=== PATIENT | male | born 1965 | race African-American/Black ===

== ENCOUNTER 2016-12-07 19:20 | Observation (INO) | payer OTHER, MEDICARE ==
--- NOTE | ~2016-12-07 | HP ---
History And Physical [address] [place]. [address] NAME: SALAZAR JIMÉNEZ : 65 STATUS : ADM IN [facility]#: [id number] AGE: 51 ADM/REG DATE : 12/07/16 MR#: [id number] REPORT SERV DATE: 12/08/16 DICTATED BY: BERNARD EDWARDS DATE: 12/08/16 REPORT STATUS : Draft TRANSCRIBED BY: LIZBETH DATE: 12/08/16 DATE OF ADMISSION: 12/07/2016 CHIEF COMPLAINT: A 51-year-old male presenting with extreme right flank pain. HISTORY OF PRESENTING ILLNESS: The patient's history was obtained through careful interview with the patient, coupled with review of [facility] and [facility] medical records. The patient, about a week ago, began to notice intermittent discoloration and even blood in his urine. But then he states today, "the pain just nailed me." He describes right flank pain a dull throbbing quality that at one point was up to 20/10 severity pain. He has had nausea, but no vomiting. He has had difficulty urinating because attempting to urinate exacerbates the pain. No fevers or chills. It should be noted that the patient recently has been on some kind of "experimental" treatment at [facility] for his multiple sclerosis, which includes high-dose biotin infusions. He believes since he started this therapy, he has had increasing strength in his legs and he has been quite encouraged by his progress in terms of his multiple sclerosis. He has noticed increased swelling in his legs, however, and sometimes they are cold to the touch, but are not particularly painful. REVIEW OF SYSTEMS: Otherwise, a 14-point review of systems was obtained and was negative. PAST MEDICAL HISTORY: 1. Multiple sclerosis, followed by Dr. Uriostegui, but also Dr. Reid Nation at [facility]. 2. Diabetes under good control. 3. Hypertension. 4. Colon polyps, seen by Dr. Weston. 5. No cardiac disease. No lung disease. PAST SURGICAL HISTORY: Right elbow nerve transplantation. ALLERGIES: CHOCOLATE AND TOMATOES. SOCIAL HISTORY: Quit smoking in 2008. Drinks occasional alcohol. He is . His in good health. The patient himself is disabled in a wheelchair. He has no biological children. History And Physical [address] [place]. [address] NAME: SALAZAR JIÉMNEZ : 65 STATUS : ADM IN [facility]#: [id number] AGE: 51 ADM/REG DATE : 12/07/16 MR#: [id number] REPORT SERV DATE: 12/08/16 DICTATED BY: BERNARD EDWARDS DATE: 12/08/16 REPORT STATUS : Draft TRANSCRIBED BY: LIZBETH DATE: 12/08/16 FAMILY HISTORY: Adopted, uncertain of any family history. CURRENT MEDICATIONS: Unknown at this time, but do include the biotin infusions from [facility]. We have asked pharmacy to obtain a medication list for us. PHYSICAL EXAMINATION: VITAL SIGNS: Temperature 98.6, pulse 99, blood pressure 137/92, respiratory rate 16, and O2 saturation 97% on room air. GENERAL: A pleasant, cooperative male, in evidence of distress secondary to his right flank pain. HEENT: Pupils equal, round, and reactive to light. No conjunctival pallor. No scleral icterus. Nares are patent. Oropharynx is clear of obstruction. Dry mucous membranes. NECK: Trachea midline. No thyromegaly. LYMPH: No cervical lymphadenopathy. No supraclavicular lymphadenopathy. No inguinal lymphadenopathy. RESPIRATORY: Clear to auscultation at bases. No wheezes, rales, or rhonchi. Normal respiratory effort. CARDIOVASCULAR: Regular rate and rhythm. No murmurs, rubs, or gallops. The patient does have chronic-appearing lower extremity edema extending from his ankles all the way up to his thighs symmetrically. ABDOMEN: Significant right flank tenderness and right anterior abdominal tenderness into his suprapubic region. No guarding. No rebound. Nondistended. No hepatosplenomegaly. DERMATOLOGICAL: Warm and dry extremities. No pallor. No cyanosis. PSYCHIATRIC: Normal affect. Good mood. Alert and oriented x3. LABORATORY DATA: Lactic acid 0.8, lipase 264, ALT, 89, white blood cell count 5.0, hemoglobin 13, hematocrit 40, platelets 264. Sodium 143, potassium 3.7, chloride 107, bicarb 33, BUN 12, creatinine 1.28, glucose 96. Urinalysis shows 89 red blood cells. STUDIES: 1. CT scan of the abdomen and pelvis shows moderate right hydroureter and hydronephrosis with large kidney stone. 2. Chest x-ray by my own evaluation shows no acute cardiopulmonary process. ASSESSMENT AND PLAN: 1. Obstructive nephrolithiasis with hydronephrosis. Consult Urology, Dr. Fletcher, for removal. The patient recently started on high-dose biotin at [facility]. It is possible that there is a correlation in the literature between biotin and calcium oxalate kidney stones? 2. Leg swelling with lymphedema. Check venous Doppler ultrasound of lower extremities to rule out deep vein thrombosis. 3. Multiple sclerosis. Debilitated. Monitor closely. 4. Diabetes. Check hemoglobin A1c. Place on sliding scale insulin. [facility] History And Physical [address] [place]. [address] NAME: SALAZAR JIMÉNEZ : 65 STATUS : ADM IN [facility]#: [id number] AGE: 51 ADM/REG DATE : 12/07/16 MR#: [id number] REPORT SERV DATE: 12/08/16 DICTATED BY: BERNARD EDWARDS DATE: 12/08/16 REPORT STATUS : Draft TRANSCRIBED BY: LIZBETH DATE: 12/08/16 Bernard Edwards M.D. / [id number] CC: Pili Reveles D.O. F.A.C.P.
--- NOTE | ~2016-12-07 | OP ---
Record Of Operation [facility] [address] [place]. [address] NAME: SALAZAR JIMÉNEZ : 65 STATUS : ADM IN PAT#: [id number] AGE: 51 ADM/REG DATE : 12/07/16 MR#: [id number] REPORT SERV DATE: 12/08/16 DICTATED BY: GARY ROME DATE: 12/08/16 REPORT STATUS : Draft TRANSCRIBED BY: MODAustin DATE: 12/08/16 DATE OF PROCEDURE: 12/07/2016 PREOPERATIVE DIAGNOSIS: Distal right ureteral calculus. POSTOPERATIVE DIAGNOSIS: Distal right ureteral calculus. OTHER DIAGNOSIS: Right ureterocele. PROCEDURES: 1. Cystoscopy. 2. Transurethral incision of right ureterocele. 3. Right ureteroscopic stone extraction. 4. Right retrograde pyelogram. SURGEON: Gary Rome M.D. ANESTHESIA: General endotracheal. ESTIMATED BLOOD LOSS: Less than 5 mL. FLUID REPLACEMENT: Unknown. DRAINS: None. INDICATION: 51-year-old male with right hydronephrosis and a CT scan demonstrating what appears to be a 10 mm stone in the distal right ureter. TECHNIQUE: The patient was identified, brought to the operating room, administered general anesthetic agent by the Anesthesia Service, intubated. He was positioned in dorsal lithotomy position. Penis, groin, scrotum, and perineum were prepped and draped in the usual sterile fashion. A 22-Ukrainian cystoscopic sheath with 30-degree lens was used for cystourethroscopy. The anterior bulbus urethra was normal. Prostatic urethra normal. The bladder was entered and surveyed. Left ureteral orifice was normal. The right ureteral orifice has a large ureterocele with a small ureteral ostia and stone seen inside the ureteral ostia. Using a cold scissor, I incised the ureterocele in the lateral location for approximately 1.5 cm. I then delivered the stone out with a grasping forceps. It would not fit through the 22-Ukrainian cystoscopic sheath, so I eventually exchanged the 22-Ukrainian cystoscopic sheath for a 25 sheath. The stone came out through the 25 sheath. I did a right retrograde pyelogram. It showed a dilated ureter. I removed the 25-Ukrainian sheath. I used a 17-Ukrainian cystoscope and inserted into the ureterocele and looked up the right ureter. There was somewhat of a narrowing at the right ureterovesical junction but was widely patent. I did not attempt to dilate that. I removed the 17-Ukrainian scope. I reinserted a 22-Ukrainian scope. I used the Bugbee electrode and cauterized the edges of the cut ureterocele. I then drained Record Of Operation [facility] [address] [place]. [address] NAME: SALAZAR JIMÉNEZ : 65 STATUS : ADM IN PAT#: [id number] AGE: 51 ADM/REG DATE : 12/07/16 MR#: [id number] REPORT SERV DATE: 12/08/16 DICTATED BY: GARY ROME DATE: 12/08/16 REPORT STATUS : Draft TRANSCRIBED BY: LIZBETH DATE: 12/08/16 the bladder and removed the cystoscope and terminated the procedure. PF/LIZBETH Gary Rome M.D. / [id number] CC: Pili Reveles D.O. F.A.C.P.
--- NOTE | ~2016-12-07 | DS ---
Discharge Summary [facility] [address] [place]. [address] NAME: SALAZAR JIMÉNEZ : 65 STATUS : DIS Stephanie PAT#: [id number] AGE: 51 ADM/REG DATE : 12/07/16 MR#: [id number] REPORT SERV DATE: 12/08/16 DICTATED BY: ISAAC JARAMILLO DATE: 12/08/16 REPORT STATUS : Draft TRANSCRIBED BY: MODAustin DATE: 12/08/16 ADMISSION DATE: 12/07/2016 DISCHARGE DATE: 12/08/2016 DISCHARGE DIAGNOSES: 1. Obstructive nephrolithiasis, now resolved. 2. Bilateral lower extremity edema, most likely lymphedema. 3. Multiple sclerosis. 4. Type 2 diabetes mellitus. 5. Hypertension. CONSULTANTS DURING THIS HOSPITALIZATION: Gary Fletcher M.D. of Urology. INVASIVE PROCEDURES DONE DURING THIS HOSPITALIZATION: Cystoscopy with stone extraction done by Dr. Fletcher on the right ureteral calculus. BRIEF HISTORY OF PRESENT ILLNESS: The patient is a 51-year-old male, who suffers from multiple sclerosis, recently received a large dose of IV biotin at [facility] for his MS, came in with right flank pain and found to have an obstructive stone, so he was admitted. For detailed history and physical exam, please see note dictated by Dr. Kevin Elam on 12/07/2016. HOSPITAL COURSE: After being admitted to the hospital, this patient was given copious amounts of IV fluids. Reasonable pain control was offered and Dr. Fletcher saw the patient in consultation. After looking at his scans, Dr. Fletcher performed a cystoscopy and stone extraction as noted previously. Postoperatively, this patient was doing well. He was tolerating a diet. There was some concern about whether he had lower extremity DVTs. Bilateral venous Dopplers were done and these were and reported negative. This patient is feeling well and he is stable. That he could be discharged home and follow up in the outpatient setting. DISCHARGE DISPOSITION: Home. DISCHARGE ACTIVITY: As tolerated. DISCHARGE DIET: Low sodium, 1800-calorie [employer] diet. DISCHARGE MEDICATIONS: Gabapentin 600 mg twice daily, Glimepiride 4 mg twice daily, metformin 1000 mg twice daily, lisinopril 40 mg once daily, Trileptal 150 mg twice daily, and Farxiga 5 mg once daily. DISCHARGE FOLLOWUP: With Dr. Torsten Jacobo as scheduled previously, with Dr Uriostegui as scheduled previously and with Dr. Fletcher as needed. More than 30 minutes spent planning this patient's discharge, reconciling medications, writing prescriptions, reviewing all lab findings with documenting this discharge and Discharge Summary [address] [address] NAME: SALAZAR JIMÉNEZ : 65 STATUS : DIS Stephanie PAT#: [id number] AGE: 51 ADM/REG DATE : 12/07/16 MR#: [id number] REPORT SERV DATE: 12/08/16 DICTATED BY: ISAAC JARAMILLO DATE: 12/08/16 REPORT STATUS : Draft TRANSCRIBED BY: LIZBETH DATE: 12/08/16 discussing hospital findings with the patient as well. CHERIE/LIZBETH Isaac Jaramillo M.D. / [id number] CC: Pili Reveles D.O. F.A.C.P. Matthew Kodsi, M.D., PhD. Gary Fletcher M.D.
--- NOTE | ~2016-12-07 | CN ---
Consultation Report [facility] [address] [place]. [address] NAME: SALAZAR JIMÉNEZ : 65 STATUS : ADM IN PAT#: [id number] AGE: 51 ADM/REG DATE : 12/07/16 MR#: [id number] REPORT SERV DATE: 12/08/16 DICTATED BY: GARY ROME DATE: 12/08/16 REPORT STATUS : Draft TRANSCRIBED BY: LIZBETH DATE: 12/08/16 DATE OF CONSULTATION: 12/08/2016 REASON FOR CONSULTATION: Possible kidney stone. IMPRESSION: 1. Right hydroureteronephrosis. 2. Possible distal right ureteral calculus or calculus that has just passed into the bladder, largest dimension is 10 mm. 3. Multiple bilateral nonobstructing renal calculi. 4. Multiple sclerosis. 5. Morbid obesity. PLAN/RECOMMENDATION: Cystoscopy, right retrograde pyelogram, ureteroscopic stone extraction or cystolithotomy, and possible stent placement. DISCUSSION: Mr. Jiménez is a 51-year-old male with multiple sclerosis, who developed right-sided pain with voiding yesterday afternoon. He came to the emergency department. A CT scan demonstrates right hydroureteronephrosis with a stone that has either just passed into the bladder or still in the distal ureter. The patient states that he continues to have pain with voiding. He denies any nausea, vomiting, fevers, chills, or dysuria. He has never had any symptomatic urolithiasis before. PAST MEDICAL HISTORY: Significant for multiple sclerosis. He has recently been started on a new drug at [facility], which I am unfamiliar with. OTHER MEDICAL PROBLEMS: Include diabetes mellitus and leg swelling. PHYSICAL EXAMINATION: GENERAL: Shows a well-developed, well-nourished male, in no acute distress. He was sleeping comfortably when I came to examine him. He awakens easily. VITAL SIGNS: He is afebrile. His vital signs are stable. HEENT: His sclerae anicteric. He has good cognitive function. NECK: Supple. LUNGS: Clear. HEART: Has regular rate and rhythm. ABDOMEN: Soft and nontender. The flanks are nontender. EXTREMITIES: Lower extremities show some edema, possibly venous stasis changes. Some thickened calluses on his feet. No specific calf tenderness. STUDIES: Serum creatinine was 1.2. White blood cell count 6000, hemoglobin 13, hematocrit 39. CT scan was reviewed and I concur with the radiologist's interpretation. Consultation Report [address] [place]. [address] NAME: SALAZAR JIMÉNEZ : 65 STATUS : ADM IN PAT#: [id number] AGE: 51 ADM/REG DATE : 12/07/16 MR#: [id number] REPORT SERV DATE: 12/08/16 DICTATED BY: GARY ROME DATE: 12/08/16 REPORT STATUS : Draft TRANSCRIBED BY: LIZBETH DATE: 12/08/16 PF/LIZBETH Gary Rome M.D. / [id number] CC: Pili Reveles D.O. F.A.C.P.
[2016-12-07 17:55] LABS: BASOPHILS 0.4 %; BASOPHILS ABSOLUTE 0.02 10/3/uL (0.0-0.16); EOSINOPHILS ABSOLUTE 0.05 10/3/uL (0.0-0.53); ER CBC TAT 0 Hrs 05 Mins; HEMATOCRIT 40.1 % (40.0-51.0); HEMOGLOBIN 13.1 g/dL (13.6-17.8); IMMATURE GRANULOCYTES 0.2 %; IMMATURE GRANULOCYTES ABSOLUTE 0.01 10/3/uL (0.0-0.11); LYMPHOCYTES 39.1 %; LYMPHOCYTES ABSOLUTE 1.94 10/3/uL (0.67-4.30); MEAN CORPUS HGB CONC 32.7 g/dL (32.0-36.0); MEAN CORPUSCULAR HEMOGLOB 25.3 pg (26.0-34.0); MEAN CORPUSCULAR VOLUME 77.6 fL (80-100); MONOCYTES 7.7 %; MONOCYTES ABSOLUTE 0.38 10/3/uL (0.21-1.20); NEUTROPHILS 51.6 %; NEUTROPHILS ABSOLUTE 2.56 10/3/uL (2.02-8.40); PLATELET COUNT 264 10/3/uL (150-400); RBC DISTRIBUTION WIDTH 15.7 % (12.0-16.0); RED CELL COUNT 5.17 10/6/uL (4.7-6.1)
[2016-12-07 17:57] LABS: MANUAL DIFF NO %
[2016-12-07 18:08] LABS: A/G RATIO 0.8 (0.7-1.9); ALBUMIN 3.3 G/DL (3.5-5.0); ALKALINE PHOSPHATASE 83 U/L (45-117); BUN (BLOOD UREA NITROGEN) 12 MG/DL (6-23); CALCIUM, SERUM 8.7 MG/DL (8.5-10.4); CHLORIDE, SERUM 107 MMOL/L (96-112); CO2 (CARBON DIOXIDE) 33 MMOL/L (24-34); CREATININE 1.28 MG/DL (0.70-1.30); GFR AFRICAN AMERICAN 75 ML/MIN (>=60); GFR NON AFRICAN AMERICAN 64 ML/MIN (>=60); GLUCOSE, SERUM 96 MG/DL (60-99); POTASSIUM, SERUM 3.7 MMOL/L (3.5-5.3); SGOT(AST) 32 U/L (5-40); SGPT(ALT) 89 U/L (5-65); SODIUM, SERUM 143 MMOL/L (135-148); TOTAL BILIRUBIN 0.2 MG/DL (0-1.2); TOTAL PROTEIN 7.3 G/DL (6.0-8.5)
[2016-12-07 19:04] LABS: LACTATE 0.8 MMOL/L (0.3-2.4)
[~2016-12-07 19:20] MED LIST: CELLCEPT5 PO; DIABETA5 PO; GLUCPH; LIPITOR10 PO; NEUR100 PO
[2016-12-07 19:55] LABS: ASCORBIC ACID (UR NOT ORDER) NEG (NEG); BILIRUBIN, URINE NEGATIVE (NEG); ER URINALYSIS TAT 0 Hrs 22 Mins; KETONE, URINE NEGATIVE (NEG); LEUKOCYTE ESTERASE(NOT OR NEG (NEG); NITRITE (URINE) NEG (NEG); WBC (NOT ORDERED) (RFLEX) < 1 (0-5)
[2016-12-07] MEDS ORDERED: LISINOPRIL40 MG PO (22:57)
[2016-12-07] MEDS ORDERED: AMARYL4 PO (22:57)
[2016-12-07] MEDS ORDERED: NEUR600 PO (22:57)
[2016-12-07] MEDS ORDERED: GLUCOPHAGE1000 MG PO (22:57)
[2016-12-07] MEDS ORDERED: TRILEP150 PO (22:58)
[2016-12-07] MEDS ORDERED: FARXIGA5 PO (22:58)
[2016-12-08 05:55] LABS: BASOPHILS 0.2 %; BASOPHILS ABSOLUTE 0.01 10/3/uL (0.0-0.16); EOSINOPHILS ABSOLUTE 0.06 10/3/uL (0.0-0.53); HEMATOCRIT 38.9 % (40.0-51.0); HEMOGLOBIN 12.9 g/dL (13.6-17.8); IMMATURE GRANULOCYTES 0.2 %; IMMATURE GRANULOCYTES ABSOLUTE 0.01 10/3/uL (0.0-0.11); LYMPHOCYTES 28.6 %; LYMPHOCYTES ABSOLUTE 1.74 10/3/uL (0.67-4.30); MEAN CORPUS HGB CONC 33.2 g/dL (32.0-36.0); MEAN CORPUSCULAR HEMOGLOB 25.4 pg (26.0-34.0); MEAN CORPUSCULAR VOLUME 76.6 fL (80-100); MEAN PLATELET VOLUME 10.7 fL (9.2-13.0); MONOCYTES 7.2 %; MONOCYTES ABSOLUTE 0.44 10/3/uL (0.21-1.20); NEUTROPHILS 62.8 %; NEUTROPHILS ABSOLUTE 3.83 10/3/uL (2.02-8.40); PLATELET COUNT 269 10/3/uL (150-400); RBC DISTRIBUTION WIDTH 15.7 % (12.0-16.0); RED CELL COUNT 5.08 10/6/uL (4.7-6.1); WHITE BLOOD CELLS 6.1 10/3/uL (4.5-10.5)
[2016-12-08 05:56] LABS: MANUAL DIFF NO %
[2016-12-08 06:17] LABS: INTERNATIONAL NORMAL RATI 1.1 UNITS (-); PARTIAL THROMBO TIME 31.3 SEC (22.5-37.2); PROTIME (NOT ORD) 14.4 SEC (12.0-14.5)
[2016-12-08 06:21] LABS: A/G RATIO 0.8 (0.7-1.9); ALBUMIN 3.2 G/DL (3.5-5.0); ALKALINE PHOSPHATASE 78 U/L (45-117); BUN (BLOOD UREA NITROGEN) 12 MG/DL (6-23); CALCIUM, SERUM 8.8 MG/DL (8.5-10.4); CHLORIDE, SERUM 107 MMOL/L (96-112); CK-MB 1.4 NG/ML; CO2 (CARBON DIOXIDE) 30 MMOL/L (24-34); CPK 165 U/L (0-200); GFR AFRICAN AMERICAN 81 ML/MIN (>=60); GFR NON AFRICAN AMERICAN 70 ML/MIN (>=60); GLOBULIN 3.8 G/DL (2.5-4.1); GLUCOSE, SERUM 138 MG/DL (60-99); SGOT(AST) 31 U/L (5-40); SGPT(ALT) 80 U/L (5-65); SODIUM, SERUM 142 MMOL/L (135-148); TOTAL BILIRUBIN 0.3 MG/DL (0-1.2); TROPONIN I <0.02 NG/ML (<0.05)
[2016-12-08 06:45] LABS: GLYCOHEMOGLOBIN (HbA1c) 7.6 % (4.7-6.1)
[2016-12-08 06:50] LABS: B NATRIURETIC PEPTIDE (BNP) 8.5 PG/ML (< 100.0)
[2016-12-13 16:58] LABS: STONE COMPOSITION TWO DNR (())
== END 2016-12-08 17:55 | disposition home or self-care (01) ==
LOC: ER 19:20 → 4SO 22:55
PROVIDERS: Emergency Medicine; Hospitalist; Urology
PROC: 0TC Urinary System, Extirpation (ICD-10-PCS; principal; 2016-12-08 10:15)
DX: N13.2 Hydronephrosis with renal and ureteral calculous obstruction (principal); N28.89 Other specified disorders of kidney and ureter; G35 Multiple sclerosis; E11.9 Type 2 diabetes mellitus without complications; I10 Essential (primary) hypertension; E66.01 Morbid (severe) obesity due to excess calories; M19.90 Unspecified osteoarthritis, unspecified site; Z79.899 Other long term (current) drug therapy; Z86.010 Personal history of colon polyps; Z94.89 Other transplanted organ and tissue status; Z88.8 Allergy status to other drugs, medicaments and biological substances; Z87.891 Personal history of nicotine dependence; G47.30 Sleep apnea, unspecified; Z99.81 Dependence on supplemental oxygen
CPT/HCPCS: 71010; 74176; 74420; 80053; 81001; 82365; 82550; 82553; 82962; 83036; 83605; 83690; 83735; 83880; 84443; 84484; 85025; 85610; 85730; 93970; 96374; 96376; 99285; A9270-GY; C1758; G0378; J1170; J2250; J2405; J2710; J3010; Q9967